=== PATIENT | female | born 1980 | race Caucasian/White ===

== ENCOUNTER 2016-10-13 11:57 | Day surgery (SDC) | payer OTHER ==
[2016-10-13] MEDS ORDERED: LACTATED RINGERS 1,000 ML IV ONE (12:57)
[2016-10-13] MEDS ORDERED: MIDAZOLAM 2 MG/2 ML VIAL IVP ONE (14:58)
[2016-10-13] MEDS ORDERED: fentaNYL 250 MCG/5 ML VIAL IVP ONE (14:58)
== END 2016-10-13 11:58 | disposition home or self-care (01) ==
PROC: 0DB68ZX Excision of Stomach, Via Natural or Artificial Opening Endoscopic, Diagnostic (ICD-10-PCS; 2016-10-13)
PROC: 0DBE8ZX Excision of Large Intestine, Via Natural or Artificial Opening Endoscopic, Diagnostic (ICD-10-PCS; principal; 2016-10-13 13:30)
PROC: 0DB98ZX Excision of Duodenum, Via Natural or Artificial Opening Endoscopic, Diagnostic (ICD-10-PCS; 2016-10-13 13:30)
DX: R19.5 Other fecal abnormalities (principal); R10.31 Right lower quadrant pain; R19.4 Change in bowel habit; R19.7 Diarrhea, unspecified
CPT/HCPCS: 43239; 45380; 81025; J3010; J7120